=== PATIENT | male | born 1995 | race Two or more races ===

== ENCOUNTER → 2020-12-19 | Outpatient (CLI) | payer BC | END | disposition home or self-care (01) | LOC: LAB 09:10 | PROVIDERS: ATTEND Specialist | DX: Z01.812 Encounter for preprocedural laboratory examination (principal); Z20.822 Contact with and (suspected) exposure to COVID-19 | CPT/HCPCS: C9803; U0003 ==

== ENCOUNTER 2020-12-25 05:02 | Day surgery (SDC) | payer BC ==
[2020-12-25] MEDS ORDERED: ANESTHESIA TRAY IN PYXIS 1 EA TRAY MC ONE (06:29)
[2020-12-25] MEDS ORDERED: BUPIVACAINE 0.5 % PF 150 MG/30 ML VIAL ONE (06:29)
[2020-12-25] MEDS ORDERED: methylPREDNISolone ACETATE 80 MG/ML VIAL ONE (06:30)
[2020-12-25] MEDS ORDERED: FENTANYL PF 100MCG/2ML AMPUL ONE (06:35)
[2020-12-25] MEDS ORDERED: ROCURONIUM BROMIDE 50 MG/5 ML ONE (06:36)
[2020-12-25] MEDS ORDERED: MIDAZOLAM HCL 2 MG/2ML VIAL ONE (06:36)
[2020-12-25] MEDS ORDERED: HYDROMORPHONE INJ 2 MG/ML DISP.SYRIN ONE (06:40)
[2020-12-25] MEDS ORDERED: BUPIVACAINE 0.25% 75 MG/30 ML VIAL ONE (08:19)
[2020-12-25] MEDS ORDERED: HYDROMORPHONE 1 MG/1 ML DISP.SYRIN ONE (08:45)
[2020-12-25] MEDS ORDERED: HYDROCODONE/APAP 5/325MG TABLET ONE (09:31)
== END 2020-12-25 10:12 | disposition home or self-care (01) ==
LOC: DS 05:02
PROVIDERS: ATTEND Specialist
DX: S83.512A Sprain of anterior cruciate ligament of left knee, initial encounter (principal); X58.XXXA Exposure to other specified factors, initial encounter; Y93.89 Activity, other specified; Y92.89 Other specified places as the place of occurrence of the external cause; Y99.8 Other external cause status
CPT/HCPCS: 29888; A4217; A6253; C1713 ×2; J0690; J1100; J1170 ×2; J1885; J2250; J2704; J3010; J3490; L1830; J1040